=== PATIENT | female | born 1985 ===

== ENCOUNTER 2020-06-01 10:00 | Inpatient (IN) | payer OTHER ==
[~2020-06-01] VITALS: Ht 170.2 cm; Wt 92.1 kg
[2020-06-01] VITALS (12 sets, daily range): BP systolic 87–141; BP diastolic 60–88
--- NOTE | 2020-06-01 10:05 | NUR ---
Arrived to unit ambulates self accompanied by s.o. from ED dept. Pt c/o Leaking fluid and abdominal pain. Wt obtained and to room 320. Gowned and urine sample obtained. To bed and monitors on. Oriented to room, call light and surroundings. use of college director.
[2020-06-01 10:30] LABS: BILIRUBIN,URINE NEGATIVE (NEGATIVE); CLARITY,URINE CLEAR; COLOR,URINE YELLOW; GLUCOSE, URINE (UA) NEGATIVE (NEGATIVE); KETONES,URINE NEGATIVE (NEGATIVE); LEUKOCYTE ESTERASE ,URINE NEGATIVE (NEGATIVE); NITRITE,URINE NEGATIVE (NEGATIVE); PROTEIN,URINE 1+ (NEGATIVE)
[2020-06-01 11:05] LABS: BACTERIA,URINE TRACE /HPF
--- NOTE | 2020-06-01 11:20 | NUR ---
DR Duval notified of pt arrival, c/o, assessment, contractions, nitrazine negative x2. New order received. plan of care reviewed with pt and s.o
--- NOTE | 2020-06-01 12:38 | NUR ---
Dr Duval notified of nitrazine positive and noted clear fluid leaking. New orders for prepare for received. plan of care reviewed with pt and s.o.
[2020-06-01] MEDS ORDERED: LACTATED RINGERS 1,000 ML IV PRN ×2 (12:50)
[2020-06-01] MEDS ORDERED: CITRIC ACID/SOB CIT (BICITRA) 30 ML UDC PO ONE (13:00)
[2020-06-01] MEDS ORDERED: METOCLOPRAMIDE INJ 10 MG/2 ML (REGLAN) IV ONE (13:00)
[2020-06-01] MEDS ORDERED: CATHETER FLUSH 10 ML SYR IV PRN (13:00)
[2020-06-01] MEDS ORDERED: FAMOTIDINE 20MG/2ML IV (PEPCID) IV ONE (13:00)
[2020-06-01 13:14] LABS: BASOPHILS # (AUTO) 0.1 10^3/uL (0.0-0.1); BASOPHILS % (AUTO) 0 % (0-10); EOSINOPHILS # (AUTO) 0.1 10^3/uL (0.0-0.3); EOSINOPHILS % (AUTO) 1 % (0-10); HEMATOCRIT 35 % (35-52); HEMOGLOBIN 11.3 g/dL (11.5-16.0); LYMPHOCYTES # (AUTO) 2.3 10^3/uL (1.0-4.0); LYMPHOCYTES % (AUTO) 18 % (12-44); MEAN CORPUSCULAR HEMOGLOBIN 27 pg (25-34); MEAN CORPUSCULAR HGB CONC 33 g/dL (32-36); MEAN CORPUSCULAR VOLUME 84 fL (80-99); MEAN PLATELET VOLUME 10.1 fL (9.0-12.2); MONOCYTES # (AUTO) 0.9 10^3/uL (0.0-1.0); MONOCYTES % (AUTO) 7 % (0-12); NEUTROPHILS # (AUTO) 9.6 10^3/uL (1.8-7.8); NEUTROPHILS % (AUTO) 74 % (42-75); PLATELET COUNT 394 10^3/uL (130-400)
[2020-06-01] MEDS ORDERED: PREN-37 PO (13:39)
[2020-06-01] MEDS ORDERED: AZITHROMYCIN INJECTION 500 MG in NS (IVPB) 250 ML IV ONE (14:00)
--- NOTE | 2020-06-01 14:00 | History & Physical-OB ---
OB - Chief Complaint & HPI Date/Time Date of Admission: Date of Admission: Jun 01, 2020 at 12:47 Date seen by a Provider: Jun 01, 2020 Time Seen by a Provider: 13:50 Chief Complaint/History OB-Reason for Admission/Chief: Rupture of Membranes (34 year old at 36 2/7 weeks gestation with complaint of ROM. Nitrazine initially positive and irregular contractions. However, after ambulating, she ws noted to have obvious ROM. Fluid clear. ) Hx : 2 Hx Para: 1 Expected Date of Delivery: Jun 26, 2020 Gestational Age in Weeks: 36 Gestational Age in Days: 2 Admission Nurse Assessment Rev: Yes History of Labs O+/- HIV - Rub I HBsAg- GBS - GC/Ch neg No record of amniocentesis or genetic testing on the chart. Other She has history of previous CS in [facility] in 2007 due to severe pre-eclampsia at 32 weeks gestation. Had been transferred to Dr. Wade for repeat cs and care of , though it does not appear that he has seen the patient. Per her records from [facility], she did have an US with suggestion of facial anomaly. However, the MFM consult note is not available. And there is not any suggestion what the MFM report has suggested, or if there were any additional findings. There has been no additional US recorded in the record. Allergies and Home Medications Allergies Coded Allergies: No Known Drug Allergies (Unverified , 06/01/20) Home Medications Vit/Iron Fumarate/FA 1 Each Tablet, 1 EACH PO DAILY, (Reported) Patient Home Medication List Home Medication List Reviewed: Yes OB - History Hx of Present Ultrasounds: Abnormal US findings Abnormal Ultrasound Findings: possible facial anomaly MFM note and level II US not available. First US not available, just note in chart. Obstetrical Complications: None Medical Complications: None Information Pre-Hospital Medication Admins: Treated for UTI with macrodantin Induced Hypertension: Yes (history of preeclampsia with severe features with initial ) Maternal Gestational Diabetes: No Hemorrhage: No Obstetrical History Hx : 2 Hx Para: 1 Hx # Term Pregnancies: 1 Hx # Pregnancies: 1 Number of Living Children: 1 Hx Termination: No Hx Multiple Gestation: No Hx Ectopic : No Hx Stillbirth: No Hx Complication: No Hx Induced Hypertens: No Hx Maternal Gestational Diabet: No Hx Hemorrhage: No Delivery History Hx Forceps Assisted Delivery: No Hx Vacuum Extraction Assisted: No Hx Placenta Abnormality: No Hx Distress: No Hx Large For Gestational Age I: No Hx Small for Gestational Age I: No Hx Section: Yes Hx Vaginal Delivery Post C-Sec: No Hx Blood Disorders: No Adverse Rxn to Tranfusion: No Patient Past Medical History NC Social History/Family History HIV/AIDS: No Recent Infectious Disease Expo: No Sexually Transmitted Disease: No Alcohol Use: Denies Use Recreational Drug Use: No Smoking Cessation: Never smoker Immunizations Tetanus Booster (TDap): Unknown Rubella: immune RPR/VDRL: Negative GBS Status: Negative HBsAG: Negative OB - Admission Exam Physical Exam Vitals: Vital Signs 06/01/20 10:21 Temp 36.2 Pulse 82 Resp 18 Pulse Ox 97 O2 Delivery Room Air HEENT: NCAT Heart: Rhythm Normal Lungs: Clear Abdomen: Gravid Cervical Dilatation: None Station: Ballotable Amniotic Fluid: Clear Heart Rate: 140's Accelerations: Accelerations Present Decelerations: No Decelerations Short Term Variability: Present Debt Management Counselor Variability: Average (6-25) Contractions on Admission: 6-10 Minutes Apart Labs Laboratory Tests Test 06/01/20 10:15 06/01/20 13:00 Range/Units Urine Color YELLOW Urine Clarity CLEAR Urine pH 7.0 5-9 Urine Specific [place] 1.015 L 1.016-1.022 Urine Protein 1+ H NEGATIVE Urine Glucose (UA) NEGATIVE NEGATIVE Urine Ketones NEGATIVE NEGATIVE Urine Nitrite NEGATIVE NEGATIVE Urine Bilirubin NEGATIVE NEGATIVE Urine Urobilinogen 0.2 < = 1.0 MG/DL Urine Leukocyte Esterase NEGATIVE NEGATIVE Urine RBC (Auto) 2+ H NEGATIVE Urine RBC 10-25 H /HPF Urine WBC NONE /HPF Urine Squamous Epithelial Cells 2-5 /HPF Urine Crystals NONE /LPF Urine Bacteria TRACE /HPF Urine Casts NONE /LPF Urine Mucus NEGATIVE /LPF Urine Culture Indicated NO White Blood Count 13.0 H 4.3-11.0 10^3/uL Red Blood Count 4.12 3.80-5.11 10^6/uL Hemoglobin 11.3 L 11.5-16.0 g/dL Hematocrit 35 35-52 % Mean Corpuscular Volume 84 80-99 fL Mean Corpuscular Hemoglobin 27 25-34 pg Mean Corpuscular Hemoglobin Concent 33 32-36 g/dL Red Cell Distribution Width 14.7 H 10.0-14.5 % Platelet Count 394 130-400 10^3/uL Mean Platelet Volume 10.1 9.0-12.2 fL Immature Granulocyte % (Auto) 1 % Neutrophils (%) (Auto) 74 42-75 % Lymphocytes (%) (Auto) 18 12-44 % Monocytes (%) (Auto) 7 0-12 % Eosinophils (%) (Auto) 1 0-10 % Basophils (%) (Auto) 0 0-10 % Neutrophils # (Auto) 9.6 H 1.8-7.8 10^3/uL Lymphocytes # (Auto) 2.3 1.0-4.0 10^3/uL Monocytes # (Auto) 0.9 0.0-1.0 10^3/uL Eosinophils # (Auto) 0.1 0.0-0.3 10^3/uL Basophils # (Auto) 0.1 0.0-0.1 10^3/uL Immature Granulocyte # (Auto) 0.1 0.0-0.1 10^3/uL OB - Assessment/Plan/Diagnosis Assessment Assessment: section, IUP - , rupture of membranes Admission Dx 1. premature ROM 2. Previous cs 3. 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 other) Plan repeat CS Risks of bleeding, infection, injury to bowel, bladder and ureter. Prophylactic antibiotics and SCDs done. Peds - aware (pt of [facility]) Admission Status: Inpatient Order (span 2 midnights) Reason for Inpatient Admission: cs ROSA SHIN DO Jun 01, 2020 14:00
[2020-06-01] MEDS ORDERED: fentaNYL INJECTION 100 MCG/2 ML AMP ONE (14:11)
[2020-06-01] MEDS ORDERED: ASPI-999 PO (14:26)
[2020-06-01] MEDS ORDERED: ceFAZolin 2 GM IV Premixed 50 ML IV ONE (14:30)
[2020-06-01] MEDS ORDERED: LIDOCAINE PF 2% 5 ML (XYLOCAINE) VIAL ONE (15:08)
[2020-06-01] MEDS ORDERED: ONDANSETRON 4 MG/2 ML (SDV) Z0FRAN ONE (15:08)
[2020-06-01] MEDS ORDERED: diphenhydrAMINE 50 MG/ML INJ (BENADRYL) IV PRN (15:30)
[2020-06-01] MEDS ORDERED: NALOXONE 0.4 MG/ML 1 ML (NARCAN) VIAL IV PRN (15:30)
[2020-06-01] MEDS ORDERED: ONDANSETRON 4 MG/2 ML (SDV) Z0FRAN IV PRN (15:30)
[2020-06-01] MEDS ORDERED: BUPIVACAINE 0.5% 30 ML (SENSORCAINE) VIAL ONE (15:31)
[2020-06-01] MEDS ORDERED: OXYTOCIN PRE-MIX DRIP 1,000 ML IV ONE (15:47)
[2020-06-01] MEDS ORDERED: D5 LR IV SOLUTION 1,000 ML IV SCH (16:03)
[2020-06-01] MEDS ORDERED: OXYTOCIN PRE-MIX DRIP 500 ML IV SCH (16:03)
--- NOTE | 2020-06-01 16:07 | Cesarean Section Operative ---
Procedure Procedure Note Pre-operative Diagnosis: Angella Carrasco is a 34 /Para 2 / 1, Gestational Age 36 5/7 weeks, premature rupture of membranes, previous section, possible anomaly, advanced maternal age Post-operative Diagnosis: same, transverse back down Procedure: Repeat low transverse section Physician: ROSA SHIN Estimated blood loss: 300 mL Disposition: stable Findings: Viable female , Apgars 6/8, weight 6#3ounces, intact placenta, 3vc, normal appearing uterus, tubes, and ovaries. Indications: Angella Carrasco is a (34 /Para 2 / 1,Gestational Age 36 5/7 weeks, premature rupture of membranes, previous section, possible anomaly, advanced maternal age presenting for repeat section She has history of previous section at 32 weeks for preeclampsia with severe features. This was done in [place] Procedure Details: She is 36 5/7 weeks. PN with [facility] and then transferred to Dr. Wade's clinic where she was seen by Ashlee Crockett APRN. She presents with possible ROM. Initially it was not evident that she had ROM. Nitrazine was negative. She was having very irregular contractions. Cervix was closed. She was then allowed to walk and after a period of time, there was a small amount of fluid noted on the perineum/pad, which tested positive, but the nitrazine from the vagina was negative. The patient was seen in pre-op and the procedure was discussed with the patient in full, including the risks, benefits, and alternatives. Her SO was present and DAMAGE ADJUSTER helped to translate. All questions were answered. The patient was taken to the operating room and a time out was performed, verifying patient and procedure. After spinal anesthesia was placed by our anesthesia colleagues, the patient was placed in the dorsal supine with leftward tilt for uterine displacement.~ Her abdomen was then prepped and draped in the typical sterile fashion. The baby was suspected to be in transverse position due to palpation. A Pfannenstiel skin incision was made using a scalpel and carried down through the underlying fascia. The fascia was incised in the midline and tented up using Della clamps. On both the inferior and superior fascia side the rectus muscle was dissected off bluntly and sharply using Hobson scissors. The peritoneum was identified and entered bluntly in the midline. This was then stretched laterally using manual strength. After entering the abdominal cavity and confirming there were adhesions, but these were not interfering with the area of the lower uterine segment, a extra large Patrick retractor was placed and the lower uterine segment was visualized. There were some adhesions of the vesicouterine peritoneum over the lower uterine segment. A bladder flap was created with the use of Metzenbaum scissors.~The lower uterine segment was not distended with the part. A scalpel was utilized to make a low transverse uterine incision.Minimal fluid was noted. The infant's head was grasped and brought to the level of the incision. The baby was noted to be transverse position with the back down. The right shoulder was anterior and presenting. I was not initially able to deliver the head, so I reached into the uterus and found the feet, rotating the baby to the breech position. The fetus was delivered in the breech presentation up to the level of the scapulae and then rotated anterior. The arms were flexed across the chest. The baby was also noted to be wrapped in the umbilical cord, so this was "unwrapped"/rotated to allow the delivery of the shoulders. The head was then flexed forward and delivered with the Sijkwfst-Bcxmqey-Lkng maneuver. Mouth and nares were suctioned with bulb suction. the baby almost immediately was active. After the umbilical cord was clamped and cut, the infant was handed off to the pediatric staff. A sample of cord blood was then obtained. Cord gases were sent. The placenta was delivered intact via uterine massage. The uterus was exteriorized and cleared of all clots and debris. The uterine incision was closed using 0 Vicryl in a running locked fashion. A second imbricated layer was placed using 0 Vicryl in a running fashion as well. The uterus was cleared of all clots and debris. Again the hysterotomy site was examined and hemostasis was observed. The bilateral tubes and ovaries appeared normal. The uterus was placed back into the abdominal cavity and abdominal gutters were cleared of all clots and debris. A final check of the uterine incision showed it to be hemostatic. The peritoneum was closed using 3-0 Vicryl in a running fashion. The fascia was closed with 0 Vicryl in a running fashion. The subcutaneous space was hemostatic, and irrigated. The subcutaneous space was closed with 3-0 Vicryl in several single interrupted stitches. The skin was then closed using 4-0 Monocryl in a running subcuticular fashion. The skin edges were reapproximated together and were hemostatic. A pressure dressing was applied. All sponge, lap and needle counts were correct at the end of the procedure per nursing. Vitals - Labs Vital Signs - I&O Vital Signs Date Time Temp Pulse Resp B/P (MAP) Pulse Ox O2 Delivery O2 Flow Rate FiO2 06/01/20 10:21 36.2 82 18 97 Room Air Labs Laboratory Tests 06/01/20 10:15: Urine Color YELLOW, Urine Clarity CLEAR, Urine pH 7.0, Urine Specific [place] 1.015L, Urine Protein 1+H, Urine Glucose (UA) NEGATIVE, Urine Ketones NEGATIVE, Urine Nitrite NEGATIVE, Urine Bilirubin NEGATIVE, Urine Urobilinogen 0.2, Urine Leukocyte Esterase NEGATIVE, Urine RBC (Auto) 2+H, Urine RBC 10-25H, Urine WBC NONE, Urine Squamous Epithelial Cells 2-5, Urine Crystals NONE, Urine Bacteria TRACE, Urine Casts NONE, Urine Mucus NEGATIVE, Urine Culture Indicated NO 06/01/20 13:00: White Blood Count 13.0H, Red Blood Count 4.12, Hemoglobin 11.3L, Hematocrit 35, Mean Corpuscular Volume 84, Mean Corpuscular Hemoglobin 27, Mean Corpuscular Hemoglobin Concent 33, Red Cell Distribution Width 14.7H, Platelet Count 394, Mean Platelet Volume 10.1, Immature Granulocyte % (Auto) 1, Neutrophils (%) (Auto) 74, Lymphocytes (%) (Auto) 18, Monocytes (%) (Auto) 7, Eosinophils (%) (Auto) 1, Basophils (%) (Auto) 0, Neutrophils # (Auto) 9.6H, Lymphocytes # (Auto) 2.3, Monocytes # (Auto) 0.9, Eosinophils # (Auto) 0.1, Basophils # (Auto) 0.1, Immature Granulocyte # (Auto) 0.1 Microbiology 06/01/20 Wet Prep - Final, Complete ROSA SHIN DO Jun 01, 2020 16:07
[2020-06-01] MEDS ORDERED: MEASLES,MUMPS,RUBELLA 1 EA INJ SC SCH (16:15)
[2020-06-01] MEDS ORDERED: TETANUS,DIPTH,PERTUSS P/F (BOOSTRIX) 0.5 ML VIAL IM SCH (16:15)
--- NOTE | 2020-06-01 16:50 | NUR ---
Report received from Moi Colbert RN. Pt in room 306. Call light with in reach.
[2020-06-01] MEDS: KETOROLAC 30 MG/ML VIAL IV SCH ×2 (17:14→23:19)
--- NOTE | 2020-06-01 17:45 | NUR ---
RT notified of IS order
[2020-06-01] MEDS: IBUPROFEN 600 MG (MOTRIN) TAB PO SCH (18:13)
[2020-06-01] MEDS: ACETAMINOPHEN 500 MG TAB (TYLENOL) PO SCH (21:11)
[2020-06-01] MEDS: DOCUSATE SODIUM 100 MG (COLACE) CAP PO SCH (21:11)
--- NOTE | 2020-06-01 21:15 | NUR ---
Assessment completed. s/o at bedside. pt c/o pain. denies the need to void at this time. meds given. ice water refilled. pt denies any further needs. will continue to monitor.
[2020-06-01] MEDS ORDERED: CATHETER FLUSH 10 ML SYR IV SCH (22:00)
--- NOTE | 2020-06-01 23:30 | NUR ---
pt up to the bathroom. positive void. pericare completed. pt assisted back to bed. No needs at this time. Will continue to monitor.
[2020-06-02 02:04] VITALS: BP 126/82
[2020-06-02] MEDS: KETOROLAC 30 MG/ML VIAL IV SCH ×2 (05:06→11:39)
[2020-06-02] MEDS: ACETAMINOPHEN 500 MG TAB (TYLENOL) PO SCH ×3 (05:06→23:56)
--- NOTE | 2020-06-02 05:15 | NUR ---
Pt assisted to the bathroom, pt tearful experiencing a lot of pain with movement. pain meds given, abdominal dsg removed. incision well approximated. c/d/i. Pt denies any further needs. Will continue to monitor.
[2020-06-02 05:39] VITALS: BP 110/56
[2020-06-02 06:24] LABS: BASOPHILS # (AUTO) 0.1 10^3/uL (0.0-0.1); BASOPHILS % (AUTO) 0 % (0-10); EOSINOPHILS # (AUTO) 0.1 10^3/uL (0.0-0.3); EOSINOPHILS % (AUTO) 0 % (0-10); HEMATOCRIT 31 % (35-52); HEMOGLOBIN 10.2 g/dL (11.5-16.0); LYMPHOCYTES # (AUTO) 2.3 10^3/uL (1.0-4.0); LYMPHOCYTES % (AUTO) 13 % (12-44); MEAN CORPUSCULAR HEMOGLOBIN 28 pg (25-34); MEAN CORPUSCULAR HGB CONC 33 g/dL (32-36); MEAN CORPUSCULAR VOLUME 84 fL (80-99); MEAN PLATELET VOLUME 10.2 fL (9.0-12.2); MONOCYTES # (AUTO) 1.3 10^3/uL (0.0-1.0); MONOCYTES % (AUTO) 7 % (0-12); NEUTROPHILS # (AUTO) 13.9 10^3/uL (1.8-7.8); NEUTROPHILS % (AUTO) 78 % (42-75); PLATELET COUNT 328 10^3/uL (130-400); WHITE BLOOD COUNT 17.7 10^3/uL (4.3-11.0)
[2020-06-02 09:00] VITALS: BP 115/60
--- NOTE | 2020-06-02 09:15 | NUR ---
A.M. ASSESSMENT COMPLETED. VSS. SPEAKS LIMITED LATVIAN. GOOGLE TRANSLATE UTILIZED PRN. ENCOURAGED INCENTIVE SPIROMETRY Q 2 HOURS AND AMBULATION IN THE HALLWAY.
[2020-06-02] MEDS: DOCUSATE SODIUM 100 MG (COLACE) CAP PO SCH ×2 (09:23→20:09)
--- NOTE | 2020-06-02 09:25 | Postpartum Progress Note ---
Post Op Post-operative Day #1 s/p RLTCS, premature rupture of membranes Subjective: Patient is without complaints. Ambulating, voiding after seals removed. Tolerating a regular diet without nausea or vomiting. Normal lochia. Pain is well controlled with oral pain medications. Passing flatus. breast/bottle feeding. Objective: 06/02/20 06/02/20 02:04 05:39 Temp 36.6 37.2 Pulse 80 87 Resp 18 18 B/P (MAP) 126/82 (97) 110/56 (74) Pulse Ox 99 95 O2 Delivery Room Air Room Air 06/02/20 00:00 Intake Total 1900 ml Output Total 325 ml Balance 1575 ml Laboratory Tests Test 06/01/20 10:15 06/01/20 13:00 06/02/20 05:49 Range/Units Urine Color YELLOW Urine Clarity CLEAR Urine pH 7.0 5-9 Urine Specific [place] 1.015 L 1.016-1.022 Urine Protein 1+ H NEGATIVE Urine Glucose (UA) NEGATIVE NEGATIVE Urine Ketones NEGATIVE NEGATIVE Urine Nitrite NEGATIVE NEGATIVE Urine Bilirubin NEGATIVE NEGATIVE Urine Urobilinogen 0.2 < = 1.0 MG/DL Urine Leukocyte Esterase NEGATIVE NEGATIVE Urine RBC (Auto) 2+ H NEGATIVE Urine RBC 10-25 H /HPF Urine WBC NONE /HPF Urine Squamous Epithelial Cells 2-5 /HPF Urine Crystals NONE /LPF Urine Bacteria TRACE /HPF Urine Casts NONE /LPF Urine Mucus NEGATIVE /LPF Urine Culture Indicated NO White Blood Count 13.0 H 17.7 H 4.3-11.0 10^3/uL Red Blood Count 4.12 3.69 L 3.80-5.11 10^6/uL Hemoglobin 11.3 L 10.2 L 11.5-16.0 g/dL Hematocrit 35 31 L 35-52 % Mean Corpuscular Volume 84 84 80-99 fL Mean Corpuscular Hemoglobin 27 28 25-34 pg Mean Corpuscular Hemoglobin Concent 33 33 32-36 g/dL Red Cell Distribution Width 14.7 H 14.7 H 10.0-14.5 % Platelet Count 394 328 130-400 10^3/uL Mean Platelet Volume 10.1 10.2 9.0-12.2 fL Immature Granulocyte % (Auto) 1 1 % Neutrophils (%) (Auto) 74 78 H 42-75 % Lymphocytes (%) (Auto) 18 13 12-44 % Monocytes (%) (Auto) 7 7 0-12 % Eosinophils (%) (Auto) 1 0 0-10 % Basophils (%) (Auto) 0 0 0-10 % Neutrophils # (Auto) 9.6 H 13.9 H 1.8-7.8 10^3/uL Lymphocytes # (Auto) 2.3 2.3 1.0-4.0 10^3/uL Monocytes # (Auto) 0.9 1.3 H 0.0-1.0 10^3/uL Eosinophils # (Auto) 0.1 0.1 0.0-0.3 10^3/uL Basophils # (Auto) 0.1 0.1 0.0-0.1 10^3/uL Immature Granulocyte # (Auto) 0.1 0.1 0.0-0.1 10^3/uL Physical Exam: General - Alert and oriented, no apparent distress Abdomen - Soft, appropriately tender to palpation, non-distended, fundus firm at umbilicus Incision - clean, dry and intact; no erythema or induration, no drainage Extremities - no edema, negative Swati's bilaterally Assessment: 1. post-operative day # 1, status post RLTCS. Recovering well, hemodynamically stable Plan: Routine post-operative care. Encourage breast feeding. Encourage ambulation. VTE prophylaxis: SCDs. Ferrous sulfate supplementation. Plan for discharge tomorrow if baby will be discharged. Vitals - Labs Vital Signs - I&O Vital Signs Date Time Temp Pulse Resp B/P (MAP) Pulse Ox O2 Delivery O2 Flow Rate FiO2 06/02/20 05:39 37.2 87 18 110/56 (74) 95 Room Air 06/02/20 02:04 36.6 80 18 126/82 (97) 99 Room Air 06/01/20 21:17 36.7 87 18 130/88 (102) 99 Room Air 06/01/20 20:26 98 Room Air 06/01/20 17:17 36.6 77 18 141/78 (99) 99 Room Air 06/01/20 16:50 Room Air 06/01/20 16:50 36.2 20 95/70 (78) 99 Room Air 06/01/20 16:45 Room Air 06/01/20 16:40 20 95/70 (78) 99 Room Air 06/01/20 16:30 20 91/66 (74) 99 Room Air 06/01/20 16:30 Room Air 06/01/20 16:20 20 91/66 (74) 98 Room Air 06/01/20 16:15 Room Air 06/01/20 16:10 20 91/66 (74) 99 Room Air 06/01/20 16:00 20 87/60 (69) 99 Room Air 06/01/20 16:00 Room Air 06/01/20 15:51 Room Air 06/01/20 15:51 36.2 20 87/60 (69) 99 Room Air 06/01/20 13:05 36.7 88 18 127/78 (94) 99 Room Air 06/01/20 11:00 36.2 82 18 97 Room Air 06/01/20 10:21 36.2 82 18 97 Room Air I & O 06/02/20 07:00 Intake Total 2900 ml Output Total 325 ml Balance 2575 ml Labs Laboratory Tests 06/01/20 10:15: Urine Color YELLOW, Urine Clarity CLEAR, Urine pH 7.0, Urine Specific [place] 1.015L, Urine Protein 1+H, Urine Glucose (UA) NEGATIVE, Urine Ketones NEGATIVE, Urine Nitrite NEGATIVE, Urine Bilirubin NEGATIVE, Urine Urobilinogen 0.2, Urine Leukocyte Esterase NEGATIVE, Urine RBC (Auto) 2+H, Urine RBC 10-25H, Urine WBC NONE, Urine Squamous Epithelial Cells 2-5, Urine Crystals NONE, Urine Bacteria TRACE, Urine Casts NONE, Urine Mucus NEGATIVE, Urine Culture Indicated NO 06/01/20 13:00: White Blood Count 13.0H, Red Blood Count 4.12, Hemoglobin 11.3L, Hematocrit 35, Mean Corpuscular Volume 84, Mean Corpuscular Hemoglobin 27, Mean Corpuscular Hemoglobin Concent 33, Red Cell Distribution Width 14.7H, Platelet Count 394, Mean Platelet Volume 10.1, Immature Granulocyte % (Auto) 1, Neutrophils (%) (Auto) 74, Lymphocytes (%) (Auto) 18, Monocytes (%) (Auto) 7, Eosinophils (%) (Auto) 1, Basophils (%) (Auto) 0, Neutrophils # (Auto) 9.6H, Lymphocytes # (Auto) 2.3, Monocytes # (Auto) 0.9, Eosinophils # (Auto) 0.1, Basophils # (Auto) 0.1, Immature Granulocyte # (Auto) 0.1 06/02/20 05:49: White Blood Count 17.7H, Red Blood Count 3.69L, Hemoglobin 10.2L, Hematocrit 31L , Mean Corpuscular Volume 84, Mean Corpuscular Hemoglobin 28, Mean Corpuscular Hemoglobin Concent 33, Red Cell Distribution Width 14.7H, Platelet Count 328, Mean Platelet Volume 10.2, Immature Granulocyte % (Auto) 1, Neutrophils (%) (Auto) 78H, Lymphocytes (%) (Auto) 13, Monocytes (%) (Auto) 7, Eosinophils (%) (Auto) 0, Basophils (%) (Auto) 0, Neutrophils # (Auto) 13.9H, Lymphocytes # (Auto) 2.3, Monocytes # (Auto) 1.3H, Eosinophils # (Auto) 0.1, Basophils # (Auto) 0.1, Immature Granulocyte # (Auto) 0.1 Microbiology 06/01/20 Wet Prep - Final, Complete ROSA SHIN DO Jun 02, 2020 09:25
--- NOTE | 2020-06-02 10:00 | NUR ---
CARING FOR INFANT IN ROOM. OBSERVED PT BOTTLEFEEDING . REPORTEDLY BREAT AND BOTTLE.
--- NOTE | 2020-06-02 12:00 | NUR ---
SHOWERED WITHOUT PROBLEMS. SPOUSE ASSISTING.
[2020-06-02 13:00] VITALS: BP 102/60
--- NOTE | 2020-06-02 13:32 | Anesthesia-Regional Post-Op ---
Regional Patient Condition Mental Status: Alert, Oriented x3 Circulation: Same as Pre-Op Headache: Absent Sensation: Full Recovery Motor Block: Absent Post Op Complications Complications None Follow Up Care/Instructions Patient Instructions None needed. Anesthesia/Patient Condition Patient is doing well, no complaints, stable vital signs, no apparent adverse anesthesia problems. PELON ARCHIBALD DO Jun 02, 2020 13:32
--- NOTE | 2020-06-02 15:30 | NUR ---
PT HAS NOT BEEN VOIDING IN THE HAT. USED GOOGLE TRANSLATE TO EXPLAIN AGAIN ABOUT VOIDING IN HAT. STATES HAS VOIDED X2 TODAY.
[2020-06-02 16:30] VITALS: BP 116/78
--- NOTE | 2020-06-02 17:00 | NUR ---
AMBULATING IN THE [place] PUSHING IN CRIB ACC BY SPOUSE. MOVING WELL.
[2020-06-02] MEDS: IBUPROFEN 600 MG (MOTRIN) TAB PO SCH ×4 (17:50→23:56)
--- NOTE | 2020-06-02 18:00 | NUR ---
PT GOT STANDARD MEAL. STATES THAT IS FINE.
[2020-06-02 22:15] VITALS: BP 130/81
[2020-06-03 04:10] VITALS: BP 134/83
[2020-06-03] MEDS: IBUPROFEN 600 MG (MOTRIN) TAB PO SCH ×2 (06:17→12:32)
[2020-06-03 09:15] VITALS: BP 121/83
[2020-06-03] MEDS: ACETAMINOPHEN 500 MG TAB (TYLENOL) PO SCH (09:15)
--- NOTE | 2020-06-03 09:15 | NUR ---
A.M. ASSESSMENT COMPLETED. VSS. ANXIOUS TO GO HOME TODAY.
[2020-06-03] MEDS: DOCUSATE SODIUM 100 MG (COLACE) CAP PO SCH (09:16)
[2020-06-03] MEDS ORDERED: ACET-93 PO (09:26)
[2020-06-03] MEDS ORDERED: IBUP-844 PO (09:26)
[2020-06-03] MEDS ORDERED: DCS100C PO (09:26)
[2020-06-03] MEDS ORDERED: OXC5T PO (09:26)
--- NOTE | 2020-06-03 09:33 | Short Stay Summary ---
Discharge Summary Hospital Course Was the Problem List Reviewed?: Yes Final Diagnosis: PPROM, Previous cS Hospital Course Date of Admission: Jun 01, 2020 at 12:47 Admission Diagnosis : [facility] Date [facility]: 06/03/20 Discharge Diagnosis: PPROM, 36 + weeks Previous section anomaly on US (facial) transverse presentation Hospital Course: Patient was admitted for PPROM and repeat cs was performed. Fetus was in transverse back down presentation. The CS was uncomplicated. Antepartum hgb was 11 and pp day 1 hgb 10.4 She had post pain management with Toradol and oxycodone and then Motrin/tylenol/oxycodone. She had an uncomplicated post course. Labs and Pending Lab Test: Microbiology 06/01/20 Wet Prep - Final, Complete Home Meds Active Reported Aspirin 81 Mg Tab.chew 81 Mg PO DAILY Tablet ( Vit/Iron Fumarate/FA) 1 Each Tablet 1 Each PO DAILY Assessment/Pt Instructions 1. PPROM 2. Previous cs, now s/p RLTCS 3. Transverse presentation Plan DC home. Follow up for incision check in 1 week (colt) and then 6 weeks pp exam with primary physician No lifting over 15 lbs nothing in vagina no driving Discharge Instructions Discharge Diet: No Restrictions Activity as Tolerated: Yes Pneumonia Vaccine Order Indica: Yes Discharge Physical Examination General Appearance: Alert Respiratory: Clear to Auscultation, Normal Air Movement Cardiovascular: Regular Rate, Normal S1, Normal S2 Abdominal: Normal Bowel Sounds, Other (Inc C/D/I) Extremities: Other (2+ edema) Allergies: Coded Allergies: No Known Drug Allergies (Unverified , 06/01/20) Copy Copies To 1: CLARITZA DE LA GARZA MD Discharge Summary Date of Admission Jun 01, 2020 at 12:47 Date of Discharge 06/03/20 Discharge Date: Jun 03, 2020 Discharge Time: 09:20 Admission Diagnosis !. PPROM 36 weeks 2. Previous section Consults/Procedures Procedures Repeat section Clinical Quality Measures DVT/VTE Risk/Contraindication: Risk Factor Score Per Nursin RFS Level Per Nursing on Admit: 1=Low/No VTE PPX DVT/VTE Prophylaxis Comfirm.Dx Mechanical not ordered: Ambulating ROSA SHIN DO Jun 03, 2020 09:32
--- NOTE | 2020-06-03 11:00 | NUR ---
CONTINUES TO CARE FOR IN ROOM. GOOD INTERACTION NOTED. PLANS TO BREAST AND BOTTLE FEED UNTIL MILK IS IN.
--- NOTE | 2020-06-03 13:00 | NUR ---
DISCHARGE INSTRUCTIONS REVIEWED WITH PT AND S.O. UTILIZING GOOGLE TRANSLATE AND COPY GIVEN. STATES UNDERSTANDING OF ALL INSTRUCTIONS AND NEED TO F/U SCHEDULED AND NEEDED.
[2020-06-03 14:15] VITALS: BP 121/83
--- NOTE | 2020-06-03 14:15 | NUR ---
DISMISSED FROM [facility] VIA W/C WITH IN STABLE CONDITION TO FAMILY CAR ACC BY Wesley AND HARPER CLARK RN.
== END 2020-06-03 14:15 | disposition home or self-care (01) | DRG 788 ==
LOC: LDRP 10:00 → WSo 10:00 → LDRP 12:47 → WSo 12:47 → WS 16:50
PROVIDERS: ADMIT Obstetrics & Gynecology; ATTEND Obstetrics & Gynecology
PROC: 10D00Z1 Extraction of Products of Conception, Low, Open Approach (ICD-10-PCS; principal; 2020-06-01 14:30)
DX: O42.013 Preterm premature rupture of membranes, onset of labor within 24 hours of rupture, third trimester (principal); O34.211 Maternal care for low transverse scar from previous cesarean delivery; Z3A.36 36 weeks gestation of pregnancy; Z37.0 Single live birth; O64.8XX0 Obstructed labor due to other malposition and malpresentation, not applicable or unspecified; O35.8XX0 Maternal care for other (suspected) fetal abnormality and damage, not applicable or unspecified
CPT/HCPCS: 36415; 81000; 85025; 86850; 86900; 86901; 87210; 94664; 99212

== ENCOUNTER 2021-05-28 18:29 | Emergency (ER) | payer SELFPAY ==
[~2021-05-28] VITALS: Ht 157 cm; Wt 63.0 kg
[~2021-05-28 18:29] MED LIST: ACET-93 PO; ASPI-999 PO; DOCU-239 PO; IBUP-844 PO; OXC5T PO; PREN-37 PO
--- NOTE | 2021-05-28 19:02 | ED Abdominal Pain ---
General Chief Complaint: Abdominal/GI Problems Stated Complaint: BACK PAIN, SIDE PAIN Source of Information: Patient, Family Exam Limitations: No Limitations (APPLE BOYCE) History of Present Illness Date Seen by Provider: May 28, 2021 Time Seen by Provider: 18:57 Initial Comments Patient is a 35-year-old female who presents to ED with right back, right flank and upper abdominal pain. Symptoms started 3 days ago. Sharp pain intermittent. Pain radiates from the back to the right upper quadrant. She is currently breast-feeding. She noticed a rash below her right breast. Denies any drainage. Denies fever, chills, vomiting, diarrhea, history of previous abdominal surgery. Denies any urinary symptoms. Patient has been taken Tylenol without much improvement. (APPLE BOYCE) Allergies and Home Medications Allergies Coded Allergies: No Known Drug Allergies (Unverified , 06/01/20) Patient Home Medication List Home Medication List Reviewed: Yes (ANTHONY BURDICK APRN) Acetaminophen (Acetaminophen) 500 Mg Tablet, 1,000 MG PO Q8HR Prescribed by: ROSA SHIN on 06/03/20925 Acyclovir (Acyclovir) 800 Mg Tablet, 800 MG PO 5XD Prescribed by: ANTHONY BURDICK on 05/28/211919 Docusate Sodium (Dok) 100 Mg Capsule, 100 MG PO BID Prescribed by: ROSA SHIN on 06/03/20925 Gabapentin (Neurontin) 300 Mg Capsule, 300 MG PO TID Prescribed by: ANTHONY BURDICK on 05/28/211919 Ibuprofen (Ibu) 600 Mg Tablet, 600 MG PO Q6HR Prescribed by: ROSA SHIN on 06/03/20925 Oxycodone Hcl (Oxyir Tablet) 5 Mg Tab, 5 MG PO Q4HR Prescribed by: ROSA SHIN on 06/03/20925 Vit/Iron Fumarate/FA ( Tablet) 1 Each Tablet, 1 EACH PO DAILY, (Reported) Entered as Reported by: GENEVA FRAIRE on 06/01/20 1339 Past Sqplpiu-Oaisws-Gmgoqv Hx Immunizations Up To Date Tetanus Booster (TDap): Unknown (APPLE BOYCE) Seasonal Allergies Seasonal Allergies: No (APPLE BOYCE) Past Medical History Surgeries: No Respiratory: No Currently Using CPAP: No Currently Using BIPAP: No Cardiac: No Neurological: No Female Reproductive Disorders: Denies Sexually Transmitted Disease: No HIV/AIDS: No Genitourinary: No Gastrointestinal: No Musculoskeletal: No Endocrine: No HEENT: No Cancer: No Psychosocial: No Integumentary: No Blood Disorders: No Adverse Reaction/Blood Tranf: No (APPLE BOYCE) Family Medical History Patient reports no known family medical history. Physical Exam Vital Signs Vital Signs - First Documented 05/28/21 18:50 Temp 37.4 Pulse 72 Resp 18 B/P (MAP) 140/94 (109) Pulse Ox 97 O2 Delivery Room Air (ANTHONY BURDICK APRN) Vital Signs Capillary Refill : (APPLE BOYCE) Height/Weight/BMI Height: '" Weight: lbs. oz. kg; 31.79 BMI Method: (APPLE BOYCE) Progress/Results/Core Measures Results/Orders Vital Signs/I&O 05/28/21 05/28/21 18:50 19:31 Temp 37.4 37.4 Pulse 72 72 Resp 18 18 B/P (MAP) 140/94 (109) 140/94 Pulse Ox 97 97 O2 Delivery Room Air Room Air (ANTHONY BURDICK APRN) Departure Impression Primary Impression: Bonnie Disposition: 01 HOME, SELF-CARE Condition: Improved Departure-Patient Inst. Decision time for Depature: 18:59 (APPLE BOYCE) Referrals: [facility] (PCP/Family) Primary Care Physician Patient Instructions: Bonnie Add. Discharge Instructions: Follow-up with your PCP in 2 to 3 days for reevaluation. All discharge instructions reviewed with patient and/or family. Voiced understanding. Scripts Gabapentin (Neurontin) 300 Mg Capsule 300 MG PO TID, #30 CAP Prov: ANTHONY BURDICK APRN 05/28/21 Acyclovir (Acyclovir) 800 Mg Tablet 800 MG PO 5XD, #35 TAB Prov: ANTHONY BURDICK APRN 05/28/21 APPLE BOYCE May 28, 2021 19:02 ANTHONY BURDICK APRN May 28, 2021 19:22
[2021-05-28] MEDS ORDERED: GABA300S2 PO (19:08)
[2021-05-28] MEDS ORDERED: ACYC-112 PO ×2 (19:08→19:20)
[2021-05-28] MEDS ORDERED: GABA300C PO (19:20)
[2021-05-28 19:31] VITALS: BP 140/94
== END 2021-05-28 19:31 | disposition home or self-care (01) ==
LOC: EDUNIT# 18:29 → ER 18:35
DX: B02.9 Zoster without complications (principal)
CPT/HCPCS: 99281